=== PATIENT | female | born 1985 ===

== ENCOUNTER 2016-08-24 04:20 | Emergency (ER) | payer MEDICAID ==
[2016-08-24 04:24] VITALS: BMI 25.1
[2016-08-24] MEDS ORDERED: Lidocaine 1% Inj (20ml) IJ STA (04:29)
[2016-08-24 04:30] VITALS: BP 118/74; PULSE 87; RESP 16; TEMP 98.2; O2SAT 98
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
[2016-08-24] MEDS ORDERED: TDAP Vaccine 0.5 mL Syr IM ONE (05:13)
--- NOTE | 2016-08-24 09:53 | RAD ---
PROCEDURE: Right Hand Radiographs. HISTORY: trauma COMPARISON: None. FINDINGS: BONES: Normal. No fracture. JOINTS: Normal. No osteoarthritic changes. SOFT TISSUES: Normal. OTHER FINDINGS: None. IMPRESSION: Normal right hand radiographs.
== END 2016-08-24 05:36 | disposition home or self-care (01) ==
LOC: ED 04:20
DX: S61.011A Laceration without foreign body of right thumb without damage to nail, initial encounter (principal); W25.XXXA Contact with sharp glass, initial encounter; Y92.009 Unspecified place in unspecified non-institutional (private) residence as the place of occurrence of the external cause; Z23 Encounter for immunization